=== PATIENT | male | born 1990 | race Hispanic/Latino ===

== ENCOUNTER 2019-10-11 | Emergency (ER) | payer SELFPAY ==
[2019-10-11 16:08] LABS: HEMATOCRIT 41.1 % (39.0-50.0); IMMATURE GRANULOCYTES 0.3 % (0.0-5.0); MEAN CELL VOLUME 84.6 fL CALC (80.0-100.0); MEAN CORPUSCULAR HGB 28.8 pG CALC (26.0-32.0); MEAN CORPUSCULAR HGB CONC 34.1 g/dL CAL (32.0-36.0); NEUT# 4.98 thou/uL (1.82-7.42); RED BLOOD COUNT 4.86 mill/uL (4.70-6.10); RED CELL DISTRI WIDTH 12.8 % (11.5-15.5)
[2019-10-11 16:18] LABS: ALKALINE PHOSPHATASE 116 u/l (38-126); ANION GAP 13 (6-22 (CALC)); BILIRUBIN, TOTAL 1.5 mg/dL (0.0-1.4); BUN 5 mg/dL (9-20); BUN/CREATININE RATIO 10 (12-20 (CALC)); CARBON DIOXIDE 28 mmol/l (22-30); CHLORIDE 98 mmol/l (95-108); CREATININE 0.4 mg/dL (0.7-1.3); GFR > 60 ML/MIN (>=60 (CALC)); GFR FOR AFR.AMER. > 60 ML/MIN (>=60 (CALC)); POTASSIUM 3.7 mmol/l (3.5-5.1); SGOT/AST 92 u/l (17-59); SODIUM 135 mmol/l (137-146); TOTAL PROTEIN 8.6 g/dL (6.3-8.2)
[2019-10-11] MEDS ORDERED: ONDANSETRON4 MG PO (17:48)
== END 2019-10-11 18:54 | disposition home or self-care (01) | DRG 864 ==
PROVIDERS: Family Medicine
DX: R50.9 Fever, unspecified (principal); R42 Dizziness and giddiness